=== PATIENT | female | born 1955 | race Caucasian/White ===

== ENCOUNTER → 2019-08-15 | Outpatient (CLI) | payer OTHER, MEDICARE ==
[~2019-08-15] MED LIST: CINNAMON; DIOVAN40 MG
== END ==
LOC: BC 11:22
DX: Z12.31 Encounter for screening mammogram for malignant neoplasm of breast (principal)

== ENCOUNTER → 2021-01-21 | Outpatient (CLI) | payer OTHER, MEDICARE | LOC: BC 09:46 | PROVIDERS: ATTEND Obstetrics & Gynecology | DX: Z12.31 Encounter for screening mammogram for malignant neoplasm of breast (principal) ==